=== PATIENT | male | born 1995 | race Caucasian/White ===

== ENCOUNTER 2017-02-20 12:55 | Emergency (ER) | payer BC ==
[~2017-02-20] VITALS: Ht 162.6 cm; Wt 54.0 kg
[2017-02-20 12:57] VITALS: Ht 162.6 cm; Wt 54.0 kg
[2017-02-20 13:47] LABS: URINE BLOOD (Dip) POC Negative (NEGATIVE)
--- NOTE | 2017-02-20 14:53 | RADRPT ---
PROCEDURE: US Scrotum. CLINICAL INDICATION: Right-sided testicular pain TECHNIQUE: Multiple sonographic images of the scrotal region were obtained utilizing a linear arra y transducer with grayscale and color-flow and a Doppler imaging. The images were reviewed on a high -resolution PACS workstation. COMPARISON: No prior studies are available for comparison. FINDINGS: The right testicle is well visualized and has a normal echotexture. No focal areas of abnormal echog enicity are visualized. The right testicle measures 3.6 x 2.4 x 3.8 cm. There is normal color-flow. The right epididymis is visualized and unremarkable in appearance. There is normal color-flow. The left testicle is well visualized and has a normal echotexture. No focal areas abnormal echogenic ity are visualized. The left testicle measures measures 4.2 x 2.0 x 3.9 cm. There is normal color-fl ow. The left epididymis is visualized and is unremarkable in appearance. There is normal color-flow. There is a minimal left-sided varicocele with Valsalva. The scrotal wall is unremarkable. No swelling or edema is seen. IMPRESSION: 1. No evidence of testicular torsion. 2. Minimal left-sided varicocele with Valsalva. RPTAT: UU .Akash Oliver MD, Date Time Electronically viewed and signed by .Akash Oliver MD, MD on 02/20/2017 14:52 .K/
[2017-02-20] MEDS ORDERED: NAPR-260 PO (15:14)
--- NOTE | 2017-02-20 15:52 | ERD ---
ER Documentation Chief Complaint Date/Time DATE: 02/20/17 TIME: 15:49 Chief Complaint pt bib family with c/o right sided testicular pain since Tuesday HPI Patient is a 21-year-old male with a past medical history of hypospadias who presents to the ED with right-sided testicular pain and groin pain 4 days. He states that he has had multiple surgeries for his hypospadias, most recent surgery was 1 year ago. He denies dysuria. States that the pain is located on the right side and groin. Denies swelling. Denies fever or chills. Denies URI symptoms. Denies chest pain, cough, shortness of breath difficulty breathing. Denies sexual intercourse. No history of STDs. No other complaints. ROS All systems reviewed and are negative except as per history of present illness. Medications Home Meds Active Scripts Naproxen* (Naprosyn*) 500 Mg Tablet, 500 MG PO BID Y for PAIN AND/OR INFLAMMATION, #30 TAB Prov:HARIS SAUNDERS PA-C 02/20/17 Allergies Allergies: Coded Allergies: No Known Allergy (Unverified , 08/10/12) PMhx/Soc History of Surgery: Yes (PENIS SX) Anesthesia Reaction: No Hx Neurological Disorder: No Hx Respiratory Disorders: No Hx Cardiac Disorders: No Hx Psychiatric Problems: No Hx Miscellaneous Medical Probl: No Hx Alcohol Use: No Hx Substance Use: No Hx Tobacco Use: No Physical Exam Vitals Vital Signs Date Time Temp Pulse Resp B/P Pulse Ox O2 Delivery O2 Flow Rate FiO2 02/20/17 12:57 97.9 107 20 138/62 99 Physical Exam GENERAL: Well-developed, well-nourished male. Appears in no acute distress. HEAD: Normocephalic, atraumatic. EYES: Pupils are equally reactive bilaterally. EOMs grossly intact. No conjunctival erythema. ENT: Moist mucous membranes. No uvula deviation. No kissing tonsils. No exudates. NECK: Supple. No lymphadenopathy or thyromegaly. No meningismus. negative kernig. negative brudinski. LUNG: Clear to auscultation bilaterally. No rhonchi, wheezing, rales or coarse breath sounds. HEART: Regular rate and rhythm. No murmurs, rubs or gallops. ABDOMEN: No scars, ecchymosis or rashes noted. Soft, nontender, and nondistended. Positive bowel sounds in all four quadrants. No rebound tenderness , no guarding. (-) McBurneys point tenderness. No CVA tenderness. BACK: No midline tenderness. : Nontender to the bilateral testicles. Scarring on his penis from previous surgery. No signs of inguinal hernia. Extremities: Equal pulses bilaterally. No peripheral clubbing, cyanosis or edema. No unilateral leg swelling. NEUROLOGIC: Alert and oriented. Moving all four extremities. 5/5 strength in all extremities. Normal speech. Steady gait. SKIN: Normal color. Warm and dry. No rashes or lesions. Capillary refill < 2 seconds Results 24 hrs Laboratory Tests Test 02/20/17 13:49 Bedside Urine pH (LAB) 7.0 Bedside Urine Protein (LAB) Negative Bedside Urine Glucose (UA) Negative Bedside Urine Ketones (LAB) Negative Bedside Urine Blood Negative Bedside Urine Nitrite (LAB) Negative Bedside Urine Leukocyte Esterase (L Negative Procedures/MDM ER COURSE: I kept the patient and/or family informed of laboratory and diagnostic imaging results throughout the emergency room course. IMAGING STUDIES [place] [id number] Radiology Main Line: [phone] DIAGNOSTIC IMAGING REPORT Patient: CHEN NEVILLE : 1995 Age: 21 Sex: M MR #: [id number] DOS: 02/20/17 1322 Ordering MD: HARIS SAUNDERS PA-C Location: [facility] Room/Bed: PROCEDURE: US Scrotum. CLINICAL INDICATION: Right-sided testicular pain TECHNIQUE: Multiple sonographic images of the scrotal region were obtained utilizing a linear array transducer with grayscale and color-flow and a Doppler imaging. The images were reviewed on a high-resolution PACS workstation. COMPARISON: No prior studies are available for comparison. FINDINGS: The right testicle is well visualized and has a normal echotexture. No focal areas of abnormal echogenicity are visualized. The right testicle measures 3.6 x 2.4 x 3.8 cm. There is normal color-flow. The right epididymis is visualized and unremarkable in appearance. There is normal color-flow. The left testicle is well visualized and has a normal echotexture. No focal areas abnormal echogenicity are visualized. The left testicle measures measures 4.2 x 2.0 x 3.9 cm. There is normal color-flow. The left epididymis is visualized and is unremarkable in appearance. There is normal color-flow. There is a minimal left-sided varicocele with Valsalva. The scrotal wall is unremarkable. No swelling or edema is seen. IMPRESSION: 1. No evidence of testicular torsion. 2. Minimal left-sided varicocele with Valsalva. RPTAT: UU .Akash Oliver MD, MD Date Time Electronically viewed and signed by .Akash Oliver MD, on 02/20/2017 14: 52 .K/ CC: HARIS SAUNDERS PA-C MEDICAL DECISION MAKING: This is a 21-year-old male who presents with right testicular pain 4 days. Vital signs were reviewed. Patient is afebrile. Patient is not hypoxic. Patient is not toxic or ill-appearing I consulted with Dr. SANCHEZ regarding this patient came to examine patient at bedside. Ultrasound is read by radiologist is unremarkable for testicular torsion. Patient has a varicocele on the left side. Low suspicion for pyelonephritis, UTI, nephrolithiasis, appendicitis, testicular torsion, incarcerated or strangulated hernia. Urine was negative for nitrites, leukocytes or hematuria. DISCHARGE: At this time, patient is stable for discharge and outpatient management with no new complaints during the ER course. Patient was sent home with Naprosyn and to follow-up with urologist in 1-2 days.. Patient will be discharged home with instructions to recheck for new or worsening symptoms such as fever, nausea, weakness, LOC and to follow up with primary care in the next 1-2 days. Patient was advised to return to the ER for any new or worsening symptoms. Plan was discussed and patient and/or family understands and agrees. Home instructions were given. Departure Diagnosis: Primary Impression: Left varicocele Additional Impression: Testicular pain, right Condition: Stable Patient Instructions: Testicular Pain, Unclear Cause, Varicocele Additional Instructions: FOLLOW UP WITH UROLOGIST Call your primary care doctor TOMORROW for an appointment during the next 1-2 days.See the doctor sooner or return here if your condition worsens before your appointment time. HARIS SAUNDERS PA-C February 20, 2017 15:52
== END 2017-02-20 15:41 | disposition home or self-care (01) ==
LOC: FTE 12:55
DX: I86.1 Scrotal varices (principal)
CPT/HCPCS: 76870; 81003; 87086; Z7502